=== PATIENT | female | born 1980 | race Caucasian/White ===

== ENCOUNTER 2017-01-20 12:45 | Emergency (ER) | payer OTHER ==
--- NOTE | 2017-01-20 13:36 | ED NURSING NOTES ---
Clinical Report - Nurses [facility] [address] [place] [address] 01/20/2017 12:45 Patient: MOSES DAVALOS TRIAGE Triage time 1300 PM. Acuity: LEVEL 4. Alert. No acute distress. SEPSIS SCREEN: Sepsis Screen. Negative (no infection suspected/documented). GREGORIO COMA SCORE: Gregorio Coma Scale: 15- eyes open spontaneously (4); best verbal response- oriented x 4 (5); best motor response- obeys commands (6). --13:11 Mariluz Vasquez R.N. 13:00 01/20/17. BP: 157/112 (regular adult cuff) taken on the left arm, via an automated monitor, while lying. HR: 79. RR: 16. O2 saturation: 96%. Temp: 98.2 F (oral). Pain level now: 0/10. --13:11 Mariluz Vasquez R.N. Chief Complaint: HEADACHE and DIZZINESS (High BP). late entry - 13:00 PM. --13:41 Mariluz Vasquez R.N. Weight: 61.6 kg stated. Height/Length: 67 inches Per Patient. BMI: 21.3. --13:09 Mariluz Vasquez R.N. Medications ALPRAZolam Oral 1 mg, as needed. --13:04 Mariluz Vasquez R.N. MetFORMIN HCl ER Oral (has not taken it ). --13:04 Mariluz Vasquez R.N. Flonase Nasal. --13:05 Mariluz Vasquez R.N. Medication/allergy information source: the patient. --13:11 Mariluz Vasquez R.N. Allergies No Known Drug Allergy. --13:01 Mariluz Vasquez R.N. History Arrived by private vehicle. Historian: patient. Primary physician (Dr. Garay). ( Pt states due to new insurance unable to see a PCP until February and get a prescription for High blood pressure, has gone to a [facility] clinic. Pt does has H/A and dizziness.). Onset. (2 weeks). No fever, weakness, cough, difficulty breathing or skin rash. Denies muscle aches. 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 PAST MEDICAL HX: Immunizations: status is unknown. Last normal menstrual period- 1 years. No contraception. SOCIAL HX: Former smoker, end date 01/17/2017. History of drug use. 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 No alcohol use. No infectious disease exposure. SELF HARM ASSESSMENT: A self harm assessment was performed. The patient answered "no" to the question "Do you have thoughts of harming or killing yourself?" and "Have you recently had thoughts about harming or killing others?". FALL RISK ASSESSMENT: Fall risk assessment completed. No fall risk identified. NUTRITIONAL RISK ASSESSMENT: The nutritional risk assessment revealed no deficiencies. FUNCTIONAL ASSESSMENT: Functional assessment: no impairments noted. LEARNING NEEDS ASSESSMENT: The learning needs assessment revealed no barriers. SKIN INTEGRITY ASSESSMENT: Skin integrity risk assessment completed. No skin integrity risk identified. --13:11 Mariluz Vasquez R.N. PROBLEMS: Otitis Externa. Cellulitis. UTI - Urinary Tract Infection. Anxiety Reaction. Headache. Immunizations. Depression. Polycystic Ovary Disease. LNMP - Last Normal Menstrual Period. --13:05 Mariluz Vasquez R.N. ADDITIONAL SURGERIES: Cholecystectomy. Lasik. --13:05 Mariluz Vasquez R.N. Interventions ID band on patient. --13:11 Mariluz Vasquez R.N. PHYSICAL ASSESSMENT Ambulatory to room. GENERAL / NEURO / PSYCH: Alert. Oriented X 4. Appears in no acute distress. RESPIRATORY: Respirations not labored. Breath sounds within normal limits. CVS: Capillary refill less than 2 seconds. Pulses within normal limits. SKIN: Skin intact. Skin is warm and dry. Normal skin turgor. --13:12 Mariluz Vasquez R.N. NURSING PROGRESS NOTES The initial plan of care for this patient has been created This plan of care was discussed with the patient. Pulse oximeter and NIBP monitor placed on patient. Patient gowned. Warming measures: blanket applied. Reassurance given. Two patient identifiers checked. Call light placed in reach. Side rails up x 1. --13:13 Mariluz Vasquez R.N. 13:12 01/20/17. BP: 173/121 taken on the left arm, while lying. HR: 79. RR: 15. O2 saturation: 98%. Pain level now: 12/20. --13:13 Mariluz Vasquez R.N. DISPOSITION / DISCHARGE Departure time: 1340 PM. Condition at departure: stable. The goals identified in the patient's plan of care were met. No learning barriers present. Discharge instructions provided and reviewed with the patient. Reviewed medication(s) side effects, precautions, dosing and course information. Prescription(s) given to the patient. Patient verbalized understanding. Written instructions provided in Iranian. No diet instructions, activity restrictions or stop smoking instructions. The patient was discharged by the nurse practitioner. She was discharged home and unaccompanied at time of discharge. She left the Emergency Department ambulatory and via private vehicle. Patient driving. FALL RISK ASSESSMENT: Fall risk assessment completed. No fall risk identified. GREGORIO COMA SCORE: Gregorio Coma Scale: 15- eyes open spontaneously (4); best verbal response- oriented x 4 (5); best motor response- obeys commands (6). --13:41 Mariluz Vasquez R.N. 13:39 01/20/17. BP: 171/100 taken on the left arm, while sitting. HR: 100. RR: 16. O2 saturation: 100%. Temp: 98.2 F (oral). Pain level now: 010. --13:41 Mariluz Vasquez R.N. Locked/Released at 01/20/2017 13:41 by Mariluz Vasquez R.N.
--- NOTE | 2017-01-20 13:36 | ED CLINICAL REPORT ---
Clinical Report - Physicians/Mid Levels [facility] [address] [place] [address] 01/20/2017 12:45 Patient: MOSES DAVALOS Time Seen: 13:08; initial patient contact, initial documentation, patient care assumed. Arrived- By private vehicle. Historian- patient. HISTORY OF PRESENT ILLNESS Chief Complaint: BLOOD PRESSURE ELEVATED. At its maximum, severity described as severe. When seen in the E.D., severity described as moderate. Modifying factors- (worse with stress). This started about 2 weeks ago and is still present. The patient has had a headache. (states that x2 weeks ago, she went to because she felt tired, didn't feel good, had headache, was dizzy and was dx with flu, was told then that her bp was high and to keep an eye on it, pt has been checking it daily with electronic bp monitor at home, and keeping diary in her phone, readings as high as 203/120, 180/112, 190/120, went to dentist today but dentist would not work on teeth due to high bp, so she came here, because she can not get into her pcp til february, still has headaches and some dizziness). Similar symptoms previously: None. Recent medical care: The patient was seen recently in a clinic. REVIEW OF SYSTEMS No fever, sore throat, sinus drainage, nasal congestion or cough. No difficulty breathing, chest pain, abdominal pain, vomiting or diarrhea. All systems otherwise negative, except as recorded above. PAST HISTORY See nurses notes. PROBLEMS: Otitis Externa. Cellulitis. UTI - Urinary Tract Infection. Anxiety Reaction. Headache. Immunizations. Depression. Polycystic Ovary Disease. LNMP - Last Normal Menstrual Period. --13:05 Mariluz Vasquez R.N. ADDITIONAL SURGERIES: Cholecystectomy. Lasik. --13:05 Mariluz Vasquez R.N. SOCIAL HISTORY Never smoker. No alcohol use or drug use. No recent travel. Is a local resident. FAMILY HISTORY Hypertension in first-degree relative (mother); heart disease in first-degree relative (mother). ADDITIONAL NOTES The nursing notes have been reviewed with agreement regarding the chief complaint, HPI, ROS, PMH and patient medications and allergies. PHYSICAL EXAM Vital Signs: 01/20/2017 13:12 BP: 173/121. HR: 79. RR: 15. O2 saturation: 98%. Pain level now: 12/20. Have been reviewed as abnormal and appear to be correct. Hypertensive. Heart rate normal. Respiratory rate normal. Temperature normal. Oxygen saturation normal. Appearance: Alert. No acute distress. Eyes: Pupils equal, round and reactive to light. Eyes normal inspection. Neck: Normal inspection. Neck supple. CVS: Normal heart rate and rhythm. Heart sounds normal. Pulses normal. Respiratory: No respiratory distress. Breath sounds normal. Chest nontender. Back: Normal inspection. Skin: Skin warm and dry. Normal skin color. No rash. Normal skin turgor. Extremities: Extremities exhibit normal ROM. No lower extremity edema. Neuro: Oriented X 3. No motor deficit. No sensory deficit. PROGRESS AND PROCEDURES Course of Care: tx options discussed, agreed to start pt on low diuretic, her to continue with bp readings and diary, until she can get appt with her pcp in february. Patient counseled in person regarding the patient's stable condition and diagnosis. Differential Diagnosis: Other possible considerations: htn, tia, cva, anuerysm, tumor, cardiac disease, kidney failure, hyperlipidemia. Above considerations are based on history and physical exam. Differential diagnosis was discussed with patient. Disposition: Discharged home in good and unchanged condition (13:36). Condition: good and stable. CLINICAL IMPRESSION Essential hypertension. INSTRUCTIONS Warnings: GENERAL WARNINGS: Return or contact your physician immediately if your condition worsens or changes unexpectedly, if not improving as expected, or if other problems arise. Specifically return if problem worsens. Prescription Medications: HCTZ 25 mg: Take 1 orally every 24 hours. Dispense fifteen (15). No refills. Follow-up: Follow up with your doctor in about one week even if well. Call for an appointment. Summary of care provided to patient. Screening today revealed the patient's blood pressure to be in the hypertensive range. The patient should follow up with a primary care provider for blood pressure management. Understanding of the discharge instructions verbalized by patient. (Electronically signed by Belem Barr A.R.N.P. 01/20/2017 14:10)
--- NOTE | 2017-01-20 14:10 | ED DISCHARGE INSTRUCTIONS ---
Patient: MOSES DAVALOS General Instructions [facility] VisitID: [id number] [place] [address] 36y, F Registration Date/Time: 01/20/2017 Essential hypertension. INSTRUCTIONS Warnings: GENERAL WARNINGS: Return or contact your physician immediately if your condition worsens or changes unexpectedly, if not improving as expected, or if other problems arise. Specifically return if problem worsens. Prescription Medications: HCTZ 25 mg: Take 1 orally every 24 hours. Dispense fifteen (15). No refills. Follow-up: Follow up with your doctor in about one week even if well. Call for an appointment. Summary of care provided to patient. Screening today revealed the patient's blood pressure to be in the hypertensive range. The patient should follow up with a primary care provider for blood pressure management. Understanding of the discharge instructions verbalized by patient. ADDITIONAL INFORMATION High Blood Pressure -- To Be Confirmed [No Tx] Your blood pressure was higher today than normal. Sometimes anxiety or pain can cause a temporary rise in blood pressure that later returns to normal. If your blood pressure is high on one measurement, this does not mean that you have hypertension (a chronic illness). However, you must have your blood pressure measured again within the next few days to find out if its still high. A normal blood pressure is 120/80 or less. The first (top) number is the "systolic" pressure. The second (bottom) number is the "diastolic" pressure. Hypertension exists when either the top number is 140 or higher, OR the bottom number is 90 or higher on repeated measurements. Blood pressure in the range of 120-140 (systolic) or 80-89 (diastolic) is considered "pre-hypertension". This means your are at risk for getting hypertension. You should have regular blood pressure checks to be sure your blood pressure is not rising. Home Care: Measure your blood pressure on 3 different days and write down the results. This can be done at your doctor's office or this facility. Some pharmacies and grocery stores offer automated blood pressure machines for your use. Follow Up: If your blood pressure is "high" (over 120/80) on 2 out of 3 days, you will need to follow up with your doctor for further evaluation and treatment. DO NOT PUT THIS OFF! Untreated high blood pressure increases the risk for heart attack, also known as acute myocardial infarction, or AMI, and stroke. It is a treatable condition. Get Prompt Medical Attention if any of the following occur: Chest pain or shortness of breath Severe headache Throbbing or rushing sound in the ears Nosebleed Sudden severe abdominal pain Extreme drowsiness, confusion or fainting Dizziness or vertigo (dizziness with spinning sensation) Weakness of an arm or leg or one side of the face Difficulty with speech or vision High Blood Pressure -- New (Begin Tx) Your blood pressure was high enough today to start treatment with medicines. The cause of hypertension is unknown in most cases, but can be controlled with lifestyle changes and/or medicines. Hypertension may cause headache, dizziness, blurred vision, rushing sound in your ears, chest pain or shortness of breath. Sometimes it causes no symptoms at all. However, untreated hypertension increases the risk of heart attack, also known as acute myocardial infarction, or AMI, and stroke. It is a serious health risk and should not be ignored. A normal blood pressure is 120/80 or less. The first (top) number is the "systolic" pressure. The second (bottom) number is the "diastolic" pressure. Hypertension exists when either the top number is 140 or higher, OR the bottom number is 90 or higher on repeated measurements. Home Care: All patients with hypertension should do the following to lower their pressure. If you are on medicines, then these methods may reduce or eliminate your need for medicine in the future. Begin a weight loss program if you are overweight. Reduce your salt intake. Avoid high salt foods (olives, pickles, smoked meats, salted potato chips, etc.). Do not add salt to your food at the table. Use only small amounts of salt when cooking. Begin an exercise program. Discuss with your doctor what type of exercise program would be best for you. It doesn't have to be difficult. Even brisk walking for 20 minutes three times a week is a good form of exercise. Avoid medicines which contain heart stimulants. This includes many cold and sinus decongestant pills and sprays as well as diet pills. Check the warnings about hypertension on the label. Stimulants such as amphetamine or cocaine could be lethal for someone with hypertension. Never take these. Limit your caffeine intake or switch to caffeine-free products. Stop smoking. If you are a long-time smoker, this can be hard. Enroll in a stop-smoking program to improve your chance of success. Talk to your physician about ways to improve your chance of success. Learning how to handle stress better is an important part of any program to lower blood pressure. Learn about relaxation methods such as meditation, yoga, or biofeedback. If medicines were prescribed, take them exactly as directed. Missing doses may cause your blood pressure to get out of control. Consider buying an automatic blood pressure machine (available at many pharmacies). Use this to monitor your blood pressure and report to your doctor. Follow Up: Because a new blood pressure medicine was started today, it is important that you have your blood pressure rechecked to be sure you are responding well and that there are no serious side effects. Unless told otherwise, follow-up with your doctor or this facility within the next THREE DAYS. Get Prompt Medical Attention if any of the following occur: Chest pain or shortness of breath Severe headache Throbbing or rushing sound in the ears Nosebleed Sudden severe abdominal pain Extreme drowsiness, confusion or fainting Dizziness or vertigo (dizziness with spinning sensation) Weakness of an arm or leg or one side of the face Difficulty with speech or vision Hydrochlorothiazide Oral tablet What is this medicine? HYDROCHLOROTHIAZIDE (niurka droe klor oh THYE a zide) is a diuretic. It increases the amount of urine passed, which causes the body to lose salt and water. This medicine is used to treat high blood pressure. It is also reduces the swelling and water retention caused by various medical conditions, such as heart, liver, or kidney disease. How should I use this medicine? Take this medicine by mouth with a glass of water. Follow the directions on the prescription label. Take your medicine at regular intervals. Remember that you will need to pass urine frequently after taking this medicine. Do not take your doses at a time of day that will cause you problems. Do not stop taking your medicine unless your doctor tells you to. Talk to your hard hat diver regarding the use of this medicine in children. Special care may be needed. What side effects may I notice from receiving this medicine? Side effects that you should report to your doctor or health youth care specialist as soon as possible: allergic reactions such as skin rash or itching, hives, swelling of the lips, mouth, tongue, or throat changes in vision chest pain eye pain fast or irregular heartbeat feeling faint or lightheaded, falls gout attack muscle pain or cramps pain or difficulty when passing urine pain, tingling, numbness in the hands or feet redness, blistering, peeling or loosening of the skin, including inside the mouth unusually weak or tired Side effects that usually do not require medical attention (report to your doctor or health youth care specialist if they continue or are bothersome): change in sex drive or performance dry mouth headache stomach upset What may interact with this medicine? cholestyramine colestipol digoxin dofetilide lithium medicines for blood pressure medicines for diabetes medicines that relax muscles for surgery other diuretics steroid medicines like prednisone or cortisone What if I miss a dose? If you miss a dose, take it as soon as you can. If it is almost time for your next dose, take only that dose. Do not take double or extra doses. Where should I keep my medicine? Keep out of the reach of children. Store at room temperature between 15 and 30 degrees C (59 and 86 degrees F). Do not freeze. Protect from light and moisture. Keep container closed tightly. Throw away any unused medicine after the expiration date. What should I tell my health care provider before I take this medicine? They need to know if you have any of these conditions: diabetes gout immune system problems, like lupus kidney disease or kidney stones liver disease pancreatitis small amount of urine or difficulty passing urine an unusual or allergic reaction to hydrochlorothiazide, sulfa drugs, other medicines, foods, dyes, or preservatives or trying to get breast-feeding What should I watch for while using this medicine? Visit your doctor or health youth care specialist for regular checks on your progress. Check your blood pressure as directed. Ask your doctor or health youth care specialist what your blood pressure should be and when you should contact him or her. You may need to be on a special diet while taking this medicine. Ask your doctor. Check with your doctor or health youth care specialist if you get an attack of severe diarrhea, nausea and vomiting, or if you sweat a lot. The loss of too much body fluid can make it dangerous for you to take this medicine. You may get drowsy or dizzy. Do not drive, use machinery, or do anything that needs mental alertness until you know how this medicine affects you. Do not stand or sit up quickly, especially if you are an older patient. This reduces the risk of dizzy or fainting spells. Alcohol may interfere with the effect of this medicine. Avoid alcoholic drinks. This medicine may affect your blood sugar level. If you have diabetes, check with your doctor or health youth care specialist before changing the dose of your diabetic medicine. This medicine can make you more sensitive to the sun. Keep out of the sun. If you cannot avoid being in the sun, wear protective clothing and use sunscreen. Do not use sun lamps or tanning beds/booths. You have been given the following additional information: Hypertension, To Be Confirmed Hypertension, New (Begin Treatment) Hydrochlorothiazide Oral tablet (Electronically signed by Belem Barr A.R.N.P. 01/20/2017 14:10)
--- NOTE | 2017-01-20 14:10 | ED DISCHARGE INSTRUCTIONS ---
Patient: MOSES DAVALOS General Instructions [facility] VisitID: [id number] [place] [address] 36y, F Registration Date/Time: 01/20/2017 Essential hypertension. INSTRUCTIONS Warnings: GENERAL WARNINGS: Return or contact your physician immediately if your condition worsens or changes unexpectedly, if not improving as expected, or if other problems arise. Specifically return if problem worsens. Prescription Medications: HCTZ 25 mg: Take 1 orally every 24 hours. Dispense fifteen (15). No refills. Follow-up: Follow up with your doctor in about one week even if well. Call for an appointment. Summary of care provided to patient. Screening today revealed the patient's blood pressure to be in the hypertensive range. The patient should follow up with a primary care provider for blood pressure management. Understanding of the discharge instructions verbalized by patient. ADDITIONAL INFORMATION High Blood Pressure -- To Be Confirmed [No Tx] Your blood pressure was higher today than normal. Sometimes anxiety or pain can cause a temporary rise in blood pressure that later returns to normal. If your blood pressure is high on one measurement, this does not mean that you have hypertension (a chronic illness). However, you must have your blood pressure measured again within the next few days to find out if its still high. A normal blood pressure is 120/80 or less. The first (top) number is the "systolic" pressure. The second (bottom) number is the "diastolic" pressure. Hypertension exists when either the top number is 140 or higher, OR the bottom number is 90 or higher on repeated measurements. Blood pressure in the range of 120-140 (systolic) or 80-89 (diastolic) is considered "pre-hypertension". This means your are at risk for getting hypertension. You should have regular blood pressure checks to be sure your blood pressure is not rising. Home Care: Measure your blood pressure on 3 different days and write down the results. This can be done at your doctor's office or this facility. Some pharmacies and grocery stores offer automated blood pressure machines for your use. Follow Up: If your blood pressure is "high" (over 120/80) on 2 out of 3 days, you will need to follow up with your doctor for further evaluation and treatment. DO NOT PUT THIS OFF! Untreated high blood pressure increases the risk for heart attack, also known as acute myocardial infarction, or AMI, and stroke. It is a treatable condition. Get Prompt Medical Attention if any of the following occur: Chest pain or shortness of breath Severe headache Throbbing or rushing sound in the ears Nosebleed Sudden severe abdominal pain Extreme drowsiness, confusion or fainting Dizziness or vertigo (dizziness with spinning sensation) Weakness of an arm or leg or one side of the face Difficulty with speech or vision High Blood Pressure -- New (Begin Tx) Your blood pressure was high enough today to start treatment with medicines. The cause of hypertension is unknown in most cases, but can be controlled with lifestyle changes and/or medicines. Hypertension may cause headache, dizziness, blurred vision, rushing sound in your ears, chest pain or shortness of breath. Sometimes it causes no symptoms at all. However, untreated hypertension increases the risk of heart attack, also known as acute myocardial infarction, or AMI, and stroke. It is a serious health risk and should not be ignored. A normal blood pressure is 120/80 or less. The first (top) number is the "systolic" pressure. The second (bottom) number is the "diastolic" pressure. Hypertension exists when either the top number is 140 or higher, OR the bottom number is 90 or higher on repeated measurements. Home Care: All patients with hypertension should do the following to lower their pressure. If you are on medicines, then these methods may reduce or eliminate your need for medicine in the future. Begin a weight loss program if you are overweight. Reduce your salt intake. Avoid high salt foods (olives, pickles, smoked meats, salted potato chips, etc.). Do not add salt to your food at the table. Use only small amounts of salt when cooking. Begin an exercise program. Discuss with your doctor what type of exercise program would be best for you. It doesn't have to be difficult. Even brisk walking for 20 minutes three times a week is a good form of exercise. Avoid medicines which contain heart stimulants. This includes many cold and sinus decongestant pills and sprays as well as diet pills. Check the warnings about hypertension on the label. Stimulants such as amphetamine or cocaine could be lethal for someone with hypertension. Never take these. Limit your caffeine intake or switch to caffeine-free products. Stop smoking. If you are a long-time smoker, this can be hard. Enroll in a stop-smoking program to improve your chance of success. Talk to your physician about ways to improve your chance of success. Learning how to handle stress better is an important part of any program to lower blood pressure. Learn about relaxation methods such as meditation, yoga, or biofeedback. If medicines were prescribed, take them exactly as directed. Missing doses may cause your blood pressure to get out of control. Consider buying an automatic blood pressure machine (available at many pharmacies). Use this to monitor your blood pressure and report to your doctor. Follow Up: Because a new blood pressure medicine was started today, it is important that you have your blood pressure rechecked to be sure you are responding well and that there are no serious side effects. Unless told otherwise, follow-up with your doctor or this facility within the next THREE DAYS. Get Prompt Medical Attention if any of the following occur: Chest pain or shortness of breath Severe headache Throbbing or rushing sound in the ears Nosebleed Sudden severe abdominal pain Extreme drowsiness, confusion or fainting Dizziness or vertigo (dizziness with spinning sensation) Weakness of an arm or leg or one side of the face Difficulty with speech or vision Hydrochlorothiazide Oral tablet What is this medicine? HYDROCHLOROTHIAZIDE (niurka droe klor oh THYE a zide) is a diuretic. It increases the amount of urine passed, which causes the body to lose salt and water. This medicine is used to treat high blood pressure. It is also reduces the swelling and water retention caused by various medical conditions, such as heart, liver, or kidney disease. How should I use this medicine? Take this medicine by mouth with a glass of water. Follow the directions on the prescription label. Take your medicine at regular intervals. Remember that you will need to pass urine frequently after taking this medicine. Do not take your doses at a time of day that will cause you problems. Do not stop taking your medicine unless your doctor tells you to. Talk to your commercial truck driver regarding the use of this medicine in children. Special care may be needed. What side effects may I notice from receiving this medicine? Side effects that you should report to your doctor or health school childcare attendant as soon as possible: allergic reactions such as skin rash or itching, hives, swelling of the lips, mouth, tongue, or throat changes in vision chest pain eye pain fast or irregular heartbeat feeling faint or lightheaded, falls gout attack muscle pain or cramps pain or difficulty when passing urine pain, tingling, numbness in the hands or feet redness, blistering, peeling or loosening of the skin, including inside the mouth unusually weak or tired Side effects that usually do not require medical attention (report to your doctor or health school childcare attendant if they continue or are bothersome): change in sex drive or performance dry mouth headache stomach upset What may interact with this medicine? cholestyramine colestipol digoxin dofetilide lithium medicines for blood pressure medicines for diabetes medicines that relax muscles for surgery other diuretics steroid medicines like prednisone or cortisone What if I miss a dose? If you miss a dose, take it as soon as you can. If it is almost time for your next dose, take only that dose. Do not take double or extra doses. Where should I keep my medicine? Keep out of the reach of children. Store at room temperature between 15 and 30 degrees C (59 and 86 degrees F). Do not freeze. Protect from light and moisture. Keep container closed tightly. Throw away any unused medicine after the expiration date. What should I tell my health care provider before I take this medicine? They need to know if you have any of these conditions: diabetes gout immune system problems, like lupus kidney disease or kidney stones liver disease pancreatitis small amount of urine or difficulty passing urine an unusual or allergic reaction to hydrochlorothiazide, sulfa drugs, other medicines, foods, dyes, or preservatives or trying to get breast-feeding What should I watch for while using this medicine? Visit your doctor or health school childcare attendant for regular checks on your progress. Check your blood pressure as directed. Ask your doctor or health school childcare attendant what your blood pressure should be and when you should contact him or her. You may need to be on a special diet while taking this medicine. Ask your doctor. Check with your doctor or health school childcare attendant if you get an attack of severe diarrhea, nausea and vomiting, or if you sweat a lot. The loss of too much body fluid can make it dangerous for you to take this medicine. You may get drowsy or dizzy. Do not drive, use machinery, or do anything that needs mental alertness until you know how this medicine affects you. Do not stand or sit up quickly, especially if you are an older patient. This reduces the risk of dizzy or fainting spells. Alcohol may interfere with the effect of this medicine. Avoid alcoholic drinks. This medicine may affect your blood sugar level. If you have diabetes, check with your doctor or health school childcare attendant before changing the dose of your diabetic medicine. This medicine can make you more sensitive to the sun. Keep out of the sun. If you cannot avoid being in the sun, wear protective clothing and use sunscreen. Do not use sun lamps or tanning beds/booths. You have been given the following additional information: Hypertension, To Be Confirmed Hypertension, New (Begin Treatment) Hydrochlorothiazide Oral tablet (Electronically signed by Beelm Barr A.R.N.P. 01/20/2017 14:10)
--- NOTE | 2017-01-20 14:11 | ED MAR SUMMARY ---
..... Medication Administration Record [facility] [address] [place], [place] [id number] Patient: MOSES DAVALOS Visit ID: [id number] 36y, F Weight: 61.6 kg Height/Length: 67 in BMI: 21.3 ALLERGIES: No Known Drug Allergy
--- NOTE | 2017-01-20 14:11 | ED MED RECONCILIATION SUMMARY ---
Patient: MOSES DAVALOS Medication Reconciliation Report [facility] VisitID: [id number] [place] [address] 36y, F Registration Date/Time: 01/20/2017 Weight: 61.6 kg Height/Length: 67 in. BMI: 21.3 ALLERGIES: No Known Drug Allergy The patient's Home Medications are listed below: THE FOLLOWING MEDICATIONS NEED TO BE RECONCILED: ALPRAZolam Oral 1 mg Flonase Nasal MetFORMIN HCl ER Oral, has not taken it The source(s) of the original Home Medication information: patient The following Medications were given to the patient in the Emergency Department: None. The following Medications were prescribed to the patient: HCTZ 25 mg: Take 1 orally every 24 hours. Dispense fifteen (15). No refills. -- Belem Barr A.R.N.P.
--- NOTE | 2017-01-20 14:11 | ED MED RECONCILIATION SUMMARY ---
Patient: MOSES DAVALOS Medication Reconciliation Report [facility] VisitID: [id number] [place] [address] 36y, F Registration Date/Time: 01/20/2017 Weight: 61.6 kg Height/Length: 67 in. BMI: 21.3 ALLERGIES: No Known Drug Allergy The patient's Home Medications are listed below: THE FOLLOWING MEDICATIONS NEED TO BE RECONCILED: ALPRAZolam Oral 1 mg Flonase Nasal MetFORMIN HCl ER Oral, has not taken it The source(s) of the original Home Medication information: patient The following Medications were given to the patient in the Emergency Department: None. The following Medications were prescribed to the patient: HCTZ 25 mg: Take 1 orally every 24 hours. Dispense fifteen (15). No refills. -- Belem Barr A.R.N.P.
--- NOTE | 2017-01-20 14:11 | ED MAR SUMMARY ---
..... Medication Administration Record [facility] [address] [place], [place] [id number] Patient: MOSES DAVALOS Visit ID: [id number] 36y, F Weight: 61.6 kg Height/Length: 67 in BMI: 21.3 ALLERGIES: No Known Drug Allergy
== END 2017-01-20 13:40 | disposition home or self-care (01) ==
LOC: ED SRH 12:45
DX: I10 Essential (primary) hypertension (principal)